=== PATIENT | male | born 1990 | race American Indian/Alaskan Native ===

== ENCOUNTER 2020-08-05 13:14 | Emergency (ER) | payer SELFPAY ==
[2020-08-05] MEDS ORDERED: FAMOTIDINE 20 MG TAB PO ONE (13:51)
[2020-08-05] MEDS ORDERED: ALUM-MAG HYDROXIDE-SIMETHICONE 200-200-20MG/5ML ORAL LIQD 30 ML PO ONE (13:51)
--- NOTE | 2020-08-05 13:54 | Event Note ---
ED Screening Note Date of service: 08/05/20 Time: 13:53 ED Screening Note: Patient complains of epigastric discomfort since Wednesday. He has a history of GERD; he has tried multiple [id number] medication without relief He reports chronic intermittent vomiting mainly at night secondary to his GERD nothing worsens his epigastric discomfort Wednesday This initial assessment/diagnostic orders/clinical plan/treatment(s) is/are subject to change based on patients health status, clinical progression and re- assessment by fellow clinical providers in the ED. Further treatment and workup at subsequent clinical providers discretion. Patient/guardian urged not to elope from the ED as their condition may be serious if not clinically assessed and managed. Initial orders include: CBC, CMP, EKG, troponin and chest x-ray
[2020-08-05 14:31] LABS: Basophils % (Auto) 0.7 % (0.0-1.8); Eosinophils # (Auto) 0.1 K/mm3 (0.0-0.4); Eosinophils % (Auto) 1.4 % (0.0-4.3); Hematocrit 45.2 % (35.5-45.6); Hemoglobin 15.7 gm/dl (11.8-15.2); Lymphocytes # (Auto) 1.2 K/mm3 (1.2-5.4); Mean Corpuscular HGB Conc 35 % (32-34); Mean Corpuscular Volume 95 fl (84-94); Monocytes # (Auto) 0.5 K/mm3 (0.0-0.8); Monocytes % (Auto) 8.8 % (0.0-7.3); Platelet Count 216 K/mm3 (140-440); Red Blood Count 4.75 M/mm3 (3.65-5.03); Red Cell Distribution Width 12.8 % (13.2-15.2)
[2020-08-05 14:42] LABS: Alanine Aminotransferase 9 units/L (7-56); Albumin 4.2 g/dL (3.9-5); BUN/Creatinine Ratio 11; Blood Urea Nitrogen 16 mg/dL (9-20); Calcium 9.5 mg/dL (8.4-10.2); Hemolysis Index 10
--- NOTE | 2020-08-05 15:12 | XRay Report ---
CHEST 2 VIEWS INDICATION: epiagastric. COMPARISON: None FINDINGS: Support devices: None. Heart: Within normal limits. Lungs: No acute air space or interstitial disease. Pleura: No significant pleural effusion. No pneumothorax. Additional findings: None. IMPRESSION: 1. No acute findings. Signer Name: Juliano Caban MD Signed: 08/05/2020 3:07 PM Workstation Name: [id number]
--- NOTE | 2020-08-05 15:23 | Emergency Department Report ---
ED Abdominal Pain HPI - General Chief Complaint: Abdominal Pain Stated Complaint: HEARTBURN Time Seen by Provider: 08/05/20 14:50 Source: patient Mode of arrival: Ambulatory Limitations: No Limitations - History of Present Illness Initial Comments: This is a 29-year-old male nontoxic, well nourished in appearance, no acute signs of distress presents to the ED with c/o of acute on chronic intermittent nausea and vomiting and abdominal pain 3 years. Patient stated that past week symptoms has increased. Currently patient denies any abdominal pain or nausea vomiting. Patient stated that he is free from work and that is why came into the emergency room today. Patient stated has history of GERD. Denies follow-up with a primary care or real estate broker associate. Patient stated when pain does occur is in the epigastric area with radiation to chest and describes as burning sensation. Worse with laying down. Patient denies chest pain, short of breath, fever, hemoptysis, blood in stool, chills, headache, stiff neck, numbness or tingling. Patient denies any diarrhea or constipation. Denies any blood in stool. Patient denies any recent travels. Patient denies any allergies or significant past medical history. -: year(s) Location: epigastric Radiation: none Migration to: no migration Quality: burning Consistency: intermittent, now resolved Improves With: nothing Worsens With: nothing Associated Symptoms: nausea, vomiting. denies: diarrhea, fever, chills, constipation, dysuria, hematemesis, hematochezia, melena, hematuria, anorexia, syncope - Related Data Previous Rx's Medication Instructions Recorded Last Taken Type Omeprazole 40 mg PO DAILY #30 capsule. 08/05/20 Unknown Rx Allergies Allergy/AdvReac Type Severity Reaction Status Date / Time No Known Allergies Allergy Unverified 08/05/20 13:21 ED Review of Systems ROS: Stated complaint: HEARTBURN Other details as noted in HPI Comment: All other systems reviewed and negative Constitutional: denies: chills, fever Eyes: denies: eye pain, eye discharge, vision change ENT: denies: ear pain, throat pain Respiratory: denies: cough, shortness of breath, wheezing Cardiovascular: denies: chest pain, palpitations Endocrine: no symptoms reported Gastrointestinal: abdominal pain, nausea, vomiting. denies: diarrhea, constipation, hematemesis, melena, hematochezia Genitourinary: denies: urgency, dysuria Musculoskeletal: denies: back pain, joint swelling, arthralgia Skin: denies: rash, lesions Neurological: denies: headache, weakness, paresthesias Psychiatric: denies: anxiety, depression Hematological/Lymphatic: denies: easy bleeding, easy bruising ED Past Medical Hx - Past Medical History Previous Medical History?: No - Surgical History Past Surgical History?: No - Social History Smoking Status: Former Smoker Substance Use Type: None - Medications Home Medications: Home Medications Medication Instructions Recorded Confirmed Last Taken Type Omeprazole 40 mg PO DAILY #30 capsule. 08/05/20 Unknown Rx ED Physical Exam - General Limitations: No Limitations General appearance: alert, in no apparent distress - Head Head exam: Present: atraumatic, normocephalic - Eye Eye exam: Present: normal appearance - Neck Neck exam: Present: normal inspection, full ROM. Absent: tenderness, meningismus, lymphadenopathy - Respiratory Respiratory exam: Present: normal lung sounds bilaterally. Absent: respiratory distress, wheezes, rales, rhonchi, stridor, chest wall tenderness, accessory muscle use, decreased breath sounds, prolonged expiratory - Cardiovascular Cardiovascular Exam: Present: regular rate, normal rhythm, normal heart sounds. Absent: bradycardia, tachycardia, irregular rhythm, systolic murmur, diastolic murmur, rubs, gallop - GI/Abdominal GI/Abdominal exam: Present: soft, normal bowel sounds. Absent: distended, tenderness, guarding, rebound, rigid, diminished bowel sounds - Extremities Exam Extremities exam: Present: normal inspection, full ROM - Back Exam Back exam: Present: normal inspection, full ROM. Absent: tenderness, CVA tenderness (R), CVA tenderness (L), muscle spasm, paraspinal tenderness, vertebral tenderness, rash noted - Neurological Exam Neurological exam: Present: alert, oriented X3, normal gait - Psychiatric Psychiatric exam: Present: normal affect, normal mood - Skin Skin exam: Present: warm, dry, intact, normal color. Absent: rash ED Course Vital Signs 08/05/20 13:17 Temperature 98.2 F Pulse Rate 104 H Respiratory 16 Rate Blood Pressure 129/87 O2 Sat by Pulse 97 Oximetry - Reevaluation(s) Reevaluation #1: 08/05/20 15:20 Patient is speaking in full sentences with no signs of distress noted. ED Medical Decision Making - Lab Data Result diagrams: 08/05/20 14:05 08/05/20 14:05 Lab Results 08/05/20 08/05/20 Range/Units 14:05 14:05 WBC 5.6 (4.5-11.0) K/mm3 RBC 4.75 (3.65-5.03) M/mm3 Hgb 15.7 H (11.8-15.2) gm/dl Hct 45.2 (35.5-45.6) % MCV 95 H (84-94) fl MCH 33 H (28-32) pg MCHC 35 H (32-34) % RDW 12.8 L (13.2-15.2) % Plt Count 216 (140-440) K/mm3 Lymph % (Auto) 21.0 (13.4-35.0) % [place] % (Auto) 8.8 H (0.0-7.3) % Eos % (Auto) 1.4 (0.0-4.3) % Baso % (Auto) 0.7 (0.0-1.8) % Lymph # (Auto) 1.2 (1.2-5.4) K/mm3 [place] # (Auto) 0.5 (0.0-0.8) K/mm3 Eos # (Auto) 0.1 (0.0-0.4) K/mm3 Baso # (Auto) 0.0 (0.0-0.1) K/mm3 Seg Neutrophils % 68.1 (40.0-70.0) % Seg Neutrophils # 3.8 (1.8-7.7) K/mm3 Sodium 138 (137-145) mmol/L Potassium 3.8 (3.6-5.0) mmol/L Chloride 102.6 (98-107) mmol/L Carbon Dioxide 26 (22-30) mmol/L Anion Gap 13 mmol/L BUN 16 (9-20) mg/dL Creatinine 1.4 H (0.8-1.3) mg/dL Estimated GFR 59 ml/min BUN/Creatinine Ratio 11 % Glucose 117 H (75-100) mg/dL Calcium 9.5 (8.4-10.2) mg/dL Magnesium 2.10 (1.7-2.3) mg/dL Total Bilirubin 1.00 (0.1-1.2) mg/dL AST 14 (5-40) units/L ALT 9 (7-56) units/L Alkaline Phosphatase 45 (35-129) units/L Troponin T < 0.010 (0.00-0.029) ng/mL Total Protein 6.8 (6.3-8.2) g/dL Albumin 4.2 (3.9-5) g/dL Albumin/Globulin Ratio 1.6 % Lipase 23 (13-60) units/L - EKG Data 08/05/20 15:21 EKG normal sinus rhythm at [address] or T wave abnormalities. Reviewed and signed by MD. - Radiology Data [facility] [address] [place] [address] XRay Report Signed Patient: ROOSEVELT MALDONADO MR#: [id number] : 1990 Acct:[id number] Age/Sex: 29 / M ADM Date: 08/05/20 Loc: ED Attending Dr: Ordering Physician: LISSETT GARDNER Date of Service: 08/05/20 Procedure(s): XR chest routine 2V Accession Number(s): [id number] cc: LISSETT GARDNER Fluoro Time In Minutes: CHEST 2 VIEWS INDICATION: epiagastric. COMPARISON: None FINDINGS: Support devices: None. Heart: Within normal limits. Lungs: No acute air space or interstitial disease. Pleura: No significant pleural effusion. No pneumothorax. Additional findings: None. IMPRESSION: 1. No acute findings. Signer Name: Juliano Caban MD Signed: 08/05/2020 3:07 PM Workstation Name: [id number] Transcribed By: WG Dictated By: Juliano Caban MD Electronically Authenticated By: Juliano Caban MD Signed Date/Time: 08/05/20 1507 DD/ 06 TD/TT: - Medical Decision Making This is a 29-year-old male that presents with GERD. Patient is stable and was examined by me. There is no abdominal tenderness. Negative signs of symptoms of appendicitis, cholelithiasis, cholecystitis, or acute abdomen. Labs obtained. Chest x-ray obtained and dictated by the radiologist. Patient is notified of the report with no questions noted by the patient. Vital signs are stable prior to discharge. Patient received medical treatment in the ED. currently the ER p atient denies any symptoms or complaints. Patient was also instructed to Follow- up with a primary care and real estate broker associate doctor in 3-5 days or if symptoms worsen and continue return to emergency room as soon as possible. At time of discharge, the patient does not seem toxic or ill in appearance. No acute signs of distress noted. Patient agrees to discharge treatment plan of care. No further questions noted by the patient. Critical care attestation.: If time is entered above; I have spent that time in minutes in the direct care of this critically ill patient, excluding procedure time. ED Disposition Clinical Impression: GERD (gastroesophageal reflux disease) Qualifiers: Esophagitis presence: esophagitis presence not specified Qualified Code(s): K21.9 - Gastro-esophageal reflux disease without esophagitis Disposition: TO HOME OR SELFCARE Is pt being admited?: No Does the pt Need Aspirin: No Condition: Stable Instructions: Food Choices for Gastroesophageal Reflux Disease, Adult, [id number], Gastroesophageal Reflux Disease, Adult, [id number] Additional Instructions: Follow-up with a primary care and real estate broker associate doctor in 3-5 days or if symptoms worsen and continue return to emergency room as soon as possible. Prescriptions: Omeprazole 40 mg PO DAILY #30 capsule. Referrals: ILYA MEMBRENO MD [Referring] - 3-5 Days JOANIE GRIMM MD [Staff Physician] - 3-5 Days [facility] [Provider Group] - 3-5 Days Forms: Work/School Release Form(ED) Time of Disposition: 15:23
[2020-08-05 15:52] VITALS: BP 127/77
== END 2020-08-05 15:54 | disposition home or self-care (01) ==
LOC: ED 13:14
DX: K21.9 Gastro-esophageal reflux disease without esophagitis (principal); Z79.899 Other long term (current) drug therapy; Z87.891 Personal history of nicotine dependence
CPT/HCPCS: 36415; 71046; 80053; 83690; 83735; 84484; 85025; 93005